=== PATIENT | male | born 1940 | race Caucasian/White ===

== ENCOUNTER 2018-02-25 09:47 | Outpatient (CLI) | payer MEDICARE ==
--- NOTE | 2018-02-25 11:41 | RAD ---
LUMBAR SPINE THREE VIEWS INCLUDING FLEXION AND EXTENSION STANDING LATERAL VIEWS: HISTORY: A 78-year-old male with a history of back pain. FINDINGS: Severe multilevel disk osteophytosis and facet arthrosis. Mild anterolisthesis of L4 on L5 and retro listhesis of L3 on L4, of L2 on L3, and of L1 on L2, but no evidence for abnormal translation between flexion and extension. IMPRESSION: 1. Severe spondylosis. 2. Mild anterolisthesis of L4 on L5 with retrolisthesis of L3 on L4, L2 on L3, and L1 on L2. 3. No abnormal translation between flexion and extension. POS: [facility]
== END 2018-02-25 09:48 | disposition home or self-care (01) ==
LOC: RAD 09:47
PROVIDERS: ATTEND Nurse Practitioner Family
DX: M47.16 Other spondylosis with myelopathy, lumbar region (principal); M43.16 Spondylolisthesis, lumbar region
CPT/HCPCS: 72100

== ENCOUNTER 2018-04-08 08:23 | Observation (INO) | payer MEDICARE ==
[2018-04-08] MEDS ORDERED: ADENOSINE 60 MG/20 ML VIAL ONE (09:00)
[2018-04-08 09:10] LABS: #Eosinphils 0.1 thou/uL (0.0-0.7); #Lymphocytes 1.5 thou/uL (1.20-3.40); #Monocytes 0.9 thou/uL (0.11-0.59); #Neutrophils 5.3 thou/uL (1.40-6.50); %Basophils 0.3 % (0.0-1.0); %Eosinophils 1.5 % (0.0-10.0); %Lymphocytes 18.6 % (21.0-51.0); %Neutrophils 68.5 % (42.0-75.0); Hemoglobin 15.2 g/dL (14.0-18.0); Mean Corpuscular HGB CONC 32.7 g/dL (32.0-36.0); Mean Corpuscular Hemoglobin 30.1 pg (27.0-31.0); Mean Platelet Volume 9.6 fL (7.4-10.4); Platelet Count 154 thou/uL (130-400); RBC Distribution Width 12.5 % (11.5-14.5); Red Blood Cell (RBC) Count 5.07 mill/uL (4.70-6.10); White Blood Cell (WBC) Count 7.8 thou/uL (4.8-10.8)
[2018-04-08 09:23] LABS: Bilirubin Negative (Negative); Blood, Urine Negative (Negative); Clarity CLOUDY (Clear); Glucose, Urine (Dipstick) Negative (Negative); Leukocyte Moderate (Negative); Nitrite Negative (Negative); Protein, Urine (Dipstick) Negative (Neg-Trace); Specific Gravity, Urine 1.018 (1.002-1.036); Urobilinogen 0.2 mg/dL (0.2-1.0)
[2018-04-08 09:26] LABS: Bacteria/HPF 1+ HPF (None Seen); Hyaline Casts/LPF 4-6 HYALINE CAST LPF (0-3 Hyaline); Pathc Cast-AUWi Flag 0.14 (0-2.49); RBC/HPF 0-3 HPF (0-3); Squamous Epithelial None Seen HPF (0-3)
[2018-04-08 09:27] LABS: Yeast-AUWi Flag 62.3 (0-25.0)
--- NOTE | 2018-04-08 09:34 | CT ---
CT HEAD WITHOUT CONTRAST: Technique: Multiple contiguous axial images were obtained through the head without IV enhancement. Indications: Metal status change, dizziness. Comparison: 01-26-16 FINDINGS: There is mild cortical volume loss, more prominent involving the frontal lobes with extraaxial CSF ov er the frontal convexities bilaterally, unchanged from the prior exam. Ventricles have normal size an d position. There are ischemic changes with focal areas of lucency in the deep white matter of both cerebral ronn spheres suggesting old lacunar infarcts. Evidence of lacunar infarct in the right basal ganglia which are more prominent today. No evidence of hemorrhage, mass, or acute cortical infarct. IMPRESSION: Cortical volume loss over the frontal lobes again noted and stable. Increasing chronic ischemic reyes es as described above when compared to prior exam. POS: [facility]
--- NOTE | 2018-04-08 09:40 | RAD ---
PORTABLE CHEST ONE VIEW: Date: 04-08-18 Time: 9:04 a.m. History: Altered mental status, hypertension, syncope. FINDINGS: Comparison is made with exam of 01-26-16. The heart size is normal. The aorta is tortuous. The lungs are well expanded without focal areas of c onsolidation, pneumothorax, or pleural effusions. IMPRESSION: No radiographic evidence of acute cardiopulmonary process. POS: [facility]
[2018-04-08 10:03] LABS: ALT (SGPT) 19 U/L (8-55); AST (SGOT) 40 U/L (5-34); Albumin 4.2 g/dL (3.4-4.8); Alkaline Phosphatase 73 U/L (40-150); Anion Gap 19 mmol/L (10-20); BUN (Urea Nitrogen) 16 mg/dL (8.4-25.7); Bilirubin, Total 0.7 mg/dL (0.2-1.2); CK (CPK) 61 U/L (30-200); Calc. Creatinine Clearance 0 mL/min (70-130); Calcium 9.4 mg/dL (7.8-10.44); Carbon Dioxide 23 mmol/L (23-31); Chloride 102 mmol/L (98-107); Estimated GFR-MDRD 53; Globulin 4.1 g/dL (2.4-3.5); Glucose 128 mg/dL (83-110); Potassium 5.8 mmol/L (3.5-5.1); Protein, Total 8.3 g/dL (5.8-8.1); Sodium 138 mmol/L (136-145)
[2018-04-08 10:33] LABS: Crystals/HPF 1+ AMORPH URATES HPF (Negative)
[2018-04-08] MEDS ORDERED: cefTRIAXone\\ROCEPHIN 2 GM VIAL ONE ×2 (10:40→10:41)
[2018-04-08] MEDS ORDERED: Acetaminophen 325 MG TAB PO PRN ×2 (12:39→12:44)
[2018-04-08] MEDS ORDERED: Ondansetron PF 4 MG/2 ML Vial IVP PRN (12:39)
[2018-04-08] MEDS ORDERED: Ondansetron ODT 4 MG TAB PO PRN (12:39)
[2018-04-08] MEDS ORDERED: Guaifenesin DM 100-10/5 ML UDCUP PO PRN (12:44)
[2018-04-08] MEDS ORDERED: traMADol HCl 50 MG TAB PO PRN (12:44)
[2018-04-08] MEDS ORDERED: HumaLOG 300 UNITS/3 ML VIAL SC PRN (12:44)
[2018-04-08] MEDS ORDERED: Dextrose 50% Abboject 50 ML SYRINGE SLOW IVP PRN (12:44)
[2018-04-08] MEDS ORDERED: Dextrose 5% in Water 1,000 ML IV PRN (12:44)
[2018-04-08] MEDS ORDERED: Sodium Chloride 0.9% 1,000 ML IV SCH (12:45)
[2018-04-08 12:56] VITALS: BMI 33.7
[2018-04-08 12:59] LABS: Troponin I Less than 0.010 ng/mL (< 0.028)
--- NOTE | 2018-04-08 13:56 | HP ---
REASON FOR ADMISSION: Syncope, dizziness. HISTORY OF PRESENTING ILLNESS: The patient gives history of having passed out multiple times in his workshop. He relates this has happened when he was upright mostly, and this has happened multiple times as well. He usually wakes up on the floor. Most of these episodes have happened in his workshop where he goes for 3 hours a day. The at bedside has not witnessed any episode. No complaints of chest pain, palpitation, PND, or orthopnea either before or after the episode. The patient has few seconds to know that he might have a syncopal episode and tries to find a safe place. No history of seizure-like activity. The patient says these come on very quick and he wakes up very quick as well from the floor. Usual loss of consciousness is around a minute or less. No history of postictal symptoms as such per patient's history. He has not had any stress test in the past. He has had stroke 2 years back when he had facial drooping which got completely resolved. PAST MEDICAL HISTORY/PAST SURGICAL HISTORY: Diabetes mellitus type 2, hypertension, benign prostatic hypertrophy, dyslipidemia, chronic dizziness which has been getting worse, history of CVA two years back, tonsillectomy, left shoulder surgery, prostate surgery, bilateral inguinal hernia repair. Chronic back pain and sees Dr. Griggs, in fact, he had an epidural shot given this morning. CURRENT MEDICATIONS: The patient takes aspirin 325 mg p.o. daily, glipizide 2.5 mg twice daily, lisinopril 20 mg daily, metformin 1000 mg p.o. twice daily, simvastatin 20 mg p.o. at bedtime, Ultram p.r.n., atenolol 50 mg p.o. daily. ALLERGIES: CODEINE. PERSONAL HISTORY: He quit smoking cigars 15 years ago, prior to which he has smoked for nearly 40 years. Does not abuse alcohol or drugs. Lives with his . FAMILY HISTORY: Mother at the age of 60 years. She has had history of cardiac disease and massive RI. Father of massive RI at the age of 53 years. Code status is full. Power of deputy prosecuting attorney is his . REVIEW OF SYSTEMS: CONSTITUTIONAL: Negative for weight loss or gain, ability to conduct usual activities. SKIN: Negative for rash, itching. EYES: Negative for double vision, pain. ENT/MOUTH: Negative for nose bleeding, neck stiffness, pain, tenderness. CARDIOVASCULAR: Negative for palpitations, dyspnea on exertion, orthopnea. RESPIRATORY: Negative for shortness of breath, wheezing, cough, hemoptysis, fever or night sweats. GASTROINTESTINAL: Negative for poor appetite, abdominal pain, heartburn, nausea , vomiting, constipation, or diarrhea. GENITOURINARY: Negative for urgency, frequency, dysuria, nocturia. MUSCULOSKELETAL: Negative for pain, swelling. NEUROLOGIC/PSYCHIATRIC: Negative for anxiety, depression. ALLERGY/IMMUNOLOGIC: Negative for skin rash, bleeding tendency. PHYSICAL EXAMINATION: GENERAL: The patient is a 78-year-old male, who is currently not in any acute distress. VITAL SIGNS: Blood pressure on arrival was 194/90, pulse 66 per minute, respiratory rate is 18 per minute, temperature 98.6 degrees Fahrenheit, saturating 96% on room air. NECK: Supple. No elevated JVD. EYES: Extraocular muscles intact. Pupils reacting to light. MOUTH: Oral cavity, mucous membranes are dry. No exudates or congestion. CARDIOVASCULAR: S1, S2 heard. Regular rhythm. RESPIRATORY: Air entry 1+ bilateral. No rales or rhonchi. ABDOMEN: Soft. Bowel sounds heard. No tenderness, rigidity, or guarding. EXTREMITIES: No peripheral edema or calf tenderness. VASCULAR: Peripheral pulses 1+ bilateral. No ischemic ulcerations or gangrene. CENTRAL NERVOUS SYSTEM: No gross focal deficits noted. The patient is alert, awake, and oriented well. PSYCHIATRIC: The patient's mood is euthymic. No hallucinations or delusions. DIAGNOSTIC DATA/LABORATORY DATA: Chest x-ray done shows no acute cardiopulmonary abnormality. CT of brain done shows cortical volume loss over both frontal lobes, which is again stable when compared to prior CAT scan done in January of 2016. There are chronic ischemic changes seen. UA shows moderate leukocyte esterase with 7 to 10 wbc's and 1+ bacteria. Troponin x2 is negative. Albumin 4.2, TSH 1.58, BUN 16, creatinine 1.3, serum glucose 128, AST 40, ALT 19, total bilirubin 0.7, potassium 5.8, serum bicarb 23. White count of 7, H and H 15 and 46, platelet count 154, MCV is 92 with 68% neutrophils. EKG done shows normal sinus rhythm at 66 beats per minute. There are nonspecific ST-T wave changes. CLINICAL IMPRESSION AND PLAN: The patient will be under observation on telemetry for multiple syncopal episodes, which occur suddenly with wakes up with complete consciousness within a minute or so. These have happened multiple times and mostly when he is upright. He also currently has a urinary tract infection and likely mild dehydration as well. We will obtain orthostatic blood pressures. He will be on normal saline at 60 mL per hour. The patient's both parents less than 60 years with massive MIs, and the patient has never had a stress test in his life. We will obtain the same now, and a repeat echo for valvular structures. Will be on aspirin, small dose of lisinopril, home dose of atenolol, Zocor as before. We will hold metformin for now and continue glipizide here. He will be on Levaquin for suspected urinary tract infection. Urine cultures will be obtained as well. The patient' s syncopal pattern appears to be cardiac and will get cardiology consultation with Dr. Salas, who is on-call. Job ID: [id number] MTDD
--- NOTE | 2018-04-08 17:22 | NM ---
MYOCARDIAL PERFUSION EVALUATION: INDICATIONS: History of CVA, hypertension, diabetes, and dyslipidemia. RADIOPHARMACEUTICAL: Technetium 99m sestamibi 28.8 millicuries IV with stress. Technetium 99m sestamibi 11 millicuries with rest. FINDINGS: When comparing the rest and stress images, no reversible myocardial perfusion defect is evident. The re is normal wall motion and thickening. Estimated LVEF is 60%. IMPRESSION: Normal myocardial perfusion evaluation. POS: [facility]
[2018-04-08 17:38] LABS: Troponin I Less than 0.010 ng/mL (< 0.028)
[2018-04-08] MEDS: HumaLOG 300 UNITS/3 ML VIAL SC PRN (17:56)
[2018-04-08] MEDS: Sodium Chloride 0.9% 1,000 ML IV SCH (17:58)
[2018-04-08] MEDS: Famotidine 20 MG TAB PO SCH (20:08)
[2018-04-08] MEDS: Metoprolol Tartrate 25 MG TAB PO SCH (21:03)
--- NOTE | 2018-04-09 02:20 | CON ---
DATE OF CONSULTATION: 04/08/2018 CARDIOLOGY CONSULT NOTE INDICATION FOR CONSULTATION: A 78-year-old gentleman with multiple syncopal episodes. HISTORY OF PRESENT ILLNESS: This very pleasant 78-year-old gentleman says he suffered a stroke about a year ago and since that time, he has been having some problems with passing out. He says they usually happen very abruptly and always when he is standing or he is upright. He says he only has a few seconds sometimes before he tries to catch himself, but he does notice they are coming on, but before he can do anything about it, he has already passed out and they do not last long and then he recovers. He denies any seizure activity. He did have orthostatic blood pressure checks done today, which showed a supine blood pressure of 180/87, standing blood pressure was 127/60, and sitting was 119/57 and obviously, the patient has orthostatic hypotension. This is approximately 60 mmHg drop in the blood pressure. He denies any problem or cardiac history. He had no chest pain or shortness of breath. He had no lower extremity edema. He has had no palpitations. He has had no significant family history of heart disease. PAST MEDICAL HISTORY: Significant for possible CVA about 2 years ago. He has history of diabetes, hypertension, benign prostatic hypertrophy. He has history of dyslipidemia, history of left shoulder surgery, prostate surgery, bilateral inguinal hernia repairs. He has had tonsillectomy. He has chronic back pain. PRESENT MEDICATIONS: Prior to admission include; 1. Aspirin. 2. Glipizide. 3. Lisinopril. 4. Metformin. 5. Simvastatin. 6. Ultram. 7. Atenolol. ALLERGIES: HE IS ALLERGIC TO CODEINE. SOCIAL HISTORY: He smoked many, many years ago when he was younger, but only smoked cigars. He has had no significant tobacco abuse. Otherwise, he has no history of illicit drug use or alcohol. He still lives with his family or with his . FAMILY HISTORY: His mother had a massive MD. Both of his parents had MIs and in their 50s or 60s. REVIEW OF SYSTEMS: A 12-point review of systems is relatively unremarkable except what is noted in the history of present illness. Otherwise, he denies any HEENT complaints, any chest complaints. He does have some visual problems, what he said he has a bleeding, most likely due to his diabetes or hypertension. He has had no complaints from a GI or standpoint. Otherwise, he has had no lower extremity edema and no history of seizures. PHYSICAL EXAMINATION: GENERAL: Reveals a very pleasant, well-developed, well-nourished gentleman, who is in no acute distress. He is alert and oriented x3. VITAL SIGNS: At this time, his blood pressure is 127/60 while he is standing and lying down is 180/87. His most recent blood pressure was 171/83. HEENT: Shows head to be normocephalic and atraumatic. Carotid pulses are present. I do not hear any bruits. There is no JVD. The thyroid does not appear to be enlarged. Oral mucosa is pink and moist. CHEST: Clear to auscultation without rales, rhonchi, or wheezing. CARDIOVASCULAR: Reveals a regular rate and rhythm. Normal S1, S2. There is no S3 or S4. There were no significant murmurs, heaves, thrills, bruits or rubs. ABDOMEN: Abdominal exam shows obesity with positive bowel sounds. No organomegaly or masses noted. Femoral pulses are present. EXTREMITIES: No clubbing, cyanosis, or edema. Pedal pulses are present. NEUROLOGICAL: The patient appears to be intact at this time. He has normal strength. Normal tone. SKIN: Warm and dry. LABORATORY DATA: EKG shows a normal sinus rhythm with no acute changes. He has had a CT scan performed earlier today. This showed some cortical loss of the frontal lobes, which has not been new and he also has some chronic ischemic changes, but otherwise there were no acute findings noted. There is no indication the patient had any cardiac elevation of the enzymes. These are all normal. He actually had a stress test performed, which also showed no evidence of ischemia. An echo was ordered, has not yet been evaluated and I will look at this later today. IMPRESSION: 1. Elderly gentleman with orthostatic hypotension. This is an autonomic nervous system issue, more neurologic than cardiac. Appears to be issue mainly associated with his blood pressure. We can always try midodrine in this gentleman or we can first of all try support hose and then he may need other medications in the form of beta blockers for his blood pressure to see if this will help some with his orthostatic hypotension. From a cardiac standpoint thus far, he appears to be normal, but we will continue to monitor him and see whether or not he has any arrhythmias, but it does appear that this is an orthostatic hypotension in this gentleman. We will see how he does while in the hospital, but could start him on 10 mg three times a day with midodrine to see if this will improve some of his symptoms. He may need further blood pressure medications in order to help with his hypertension. As far as his other medical problems, for this diabetes, this will be dealt by the primary care service. 2. Hypertension. He definitely will need some changes in his medications in order to control his blood pressure. 3. History of chronic pain. I believe he is followed by Dr. Griggs and he has received occasional epidural shots and apparently, he did have one earlier today. 4. Further recommendations will depend on the results of the echocardiogram, but at this time, from a cardiac standpoint, it appears his overall cardiac status is stable, but this is a neurologic problem with orthostatic hypotension. Job ID: [id number]
[2018-04-09 05:01] LABS: #Eosinphils 0.1 thou/uL (0.0-0.7); #Lymphocytes 1.1 thou/uL (1.20-3.40); #Monocytes 0.6 thou/uL (0.11-0.59); #Neutrophils 4.6 thou/uL (1.40-6.50); %Basophils 0.5 % (0.0-1.0); %Eosinophils 1.2 % (0.0-10.0); %Lymphocytes 16.9 % (21.0-51.0); %Monocytes 9.6 % (0.0-10.0); %Neutrophils 71.8 % (42.0-75.0); Hemoglobin 13.6 g/dL (14.0-18.0); Mean Corpuscular Hemoglobin 31.5 pg (27.0-31.0); Mean Corpuscular Volume 92.8 fL (78.0-98.0); Mean Platelet Volume 9.1 fL (7.4-10.4); Platelet Count 129 thou/uL (130-400); RBC Distribution Width 12.2 % (11.5-14.5); Red Blood Cell (RBC) Count 4.31 mill/uL (4.70-6.10); White Blood Cell (WBC) Count 6.4 thou/uL (4.8-10.8)
[2018-04-09] MEDS: Sodium Chloride 0.9% 1,000 ML IV SCH ×2 (05:20→05:27)
[2018-04-09 05:23] LABS: Anion Gap 13 mmol/L (10-20); BUN (Urea Nitrogen) 18 mg/dL (8.4-25.7); Calc. Creatinine Clearance 68 mL/min (70-130); Calcium 8.8 mg/dL (7.8-10.44); Carbon Dioxide 26 mmol/L (23-31); Cardiac Risk 3.4 (Less than 4.5); Chloride 101 mmol/L (98-107); Cholesterol 111 mg/dl (< 200 Desired); Estimated GFR-MDRD 60; Glucose 133 mg/dL (83-110); HDL Cholesterol 33 mg/dL (>60 Neg Risk); LDL Cholesterol, Calculated 59 mg/dL; Potassium 4.4 mmol/L (3.5-5.1); Sodium 136 mmol/L (136-145); Triglycerides 94 mg/dL (Less than 150)
[2018-04-09] MEDS ORDERED: Atenolol 50 MG TAB PO SCH (09:00)
[2018-04-09] MEDS ORDERED: Lisinopril 5 MG TAB PO SCH ×2 (09:00→15:02)
--- NOTE | 2018-04-09 09:16 | PDOC.CTH ---
Cardiology Progress Note - Subjective The pt seen and examined. No overnight events. No cardiac complaints. - Objective Vital Signs Temp Pulse Resp BP BP Pulse Ox 04/09/18 07:11 97.9 F 62 16 175/93 H 96 04/09/18 04:00 98.2 F 64 14 163/87 H 97 04/09/18 00:10 98.2 F 67 16 144/74 H 94 L Weight 207 lb 1.6 oz 04/08/18 04/09/18 04/10/18 06:59 06:59 06:59 Intake Total 2564 240 Output Total 1100 Balance 1464 240 - Physical Examination General/Neuro: alert & oriented x3 Neck: no JVD present Lungs: CTA Heart: RRR Abdomen: soft Extremities: other: (No edema) - Telemetry Telemetry Rhythm: SR - Labs Result Diagrams: 04/09/18 04:34 04/09/18 04:34 Troponin/CKMB Troponin I Less than 0.010 ng/mL (< 0.028) 04/08/18 16:52 - Assessment/Plan 1. Syncopal episodes possible 2/2 Orthostatic Hypotension - no more syncopal/ near syncopal episodes; Stress test was normal; Start Midodrine 10mg TID; Possible the pt needs Waist high BENITEZ; 2. Hx of CVA in 11/2016 3. Vertigo - stable 4. HTN - stable 5. UTI - On NS 60ml/h and ABX IV; managed by PCP Pt. seen and eval. by me. No new complaints. No syncope. BP is elevated in supine position. May need to try NTG paste while he is lying down . Try Midodrine. Stop betablockers for now. May need Neurology input as this is a neurologic problem. I agree otherwise with the A/P by the LEISURE STUDIES PROFESSOR. Review of Systems - Review of Systems Constitutional: reports: no symptoms reported EENTM: reports: no symptoms reported Respiratory: reports: no symptoms reported Cardiac (ROS): reports: no symptoms reported ABD/GI: reports: no symptoms reported : reports: no symptoms reported Musculoskeletal: reports: no symptoms reported
[2018-04-09] MEDS: Famotidine 20 MG TAB PO SCH ×2 (09:20→21:06)
[2018-04-09] MEDS: Aspirin 81 mg Enteric Coated Tablet PO SCH ×2 (09:20→21:06)
[2018-04-09] MEDS: Enoxaparin Sodium 40 MG/0.4 ML SYRINGE SC SCH (09:21)
[2018-04-09] MEDS: Metoprolol Tartrate 25 MG TAB PO SCH (09:28)
[2018-04-09] MEDS ORDERED: Midodrine HCl 5 MG TAB PO SCH (10:15)
[2018-04-09] MEDS: HumaLOG 300 UNITS/3 ML VIAL SC PRN (11:04)
--- NOTE | 2018-04-09 12:28 | EKG ---
Test Reason : Blood Pressure : / mmHG Vent. Rate : 066 BPM Atrial Rate : 066 BPM P-R Int : 116 ms QRS Dur : 078 ms QT Int : 420 ms P-R-T Axes : 046 046 109 degrees QTc Int : 440 ms Normal sinus rhythm Possible Left atrial enlargement Nonspecific T wave abnormality Abnormal ECG Confirmed by EDIE TADEO, SHEELA ([id number]), editor producer JERAMY MORTENSEN ([id number]) on 04/09/2018 12:28:37 PM Referred By: Confirmed By:SHEELA IRIZARRY MD
[2018-04-09] MEDS ORDERED: hydrALAZINE 25 MG TAB PO SCH (16:00)
[2018-04-09] MEDS ORDERED: Lisinopril 10 MG TAB PO SCH (16:00)
[2018-04-09] MEDS: Midodrine HCl 5 MG TAB PO SCH ×2 (16:03→22:59)
[2018-04-09] MEDS: Nitroglycerin 2% Ointment 1 INCH/1 GM Packet TOP SCH (19:44)
[2018-04-09] MEDS: hydrALAZINE 25 MG TAB PO SCH (21:06)
[2018-04-09] MEDS ORDERED: traZODone HCl 50 MG TAB PO PRN (22:25)
--- NOTE | 2018-04-10 05:42 | PDOC.PN ---
- Subjective Encounter Start Date: 04/09/18 Encounter Start Time: 09:00 Subjective: pt up in bed no compalins, wants to go home - Objective Resuscitation Status - Order Detail: 04/08/18 12:31 Resuscitation Status Routine Resuscitation Status: FULL: Full Resuscitation Vital Signs & Weight: Vital Signs (12 hours) Temp Pulse Resp BP BP Pulse Ox 04/10/18 03:07 97.9 F 82 18 161/72 H 96 04/09/18 23:00 98.3 F 83 20 143/65 H 95 04/09/18 19:25 98.4 F 83 16 197/93 H 97 Weight Weight 207 lb 1.6 oz I&O: 04/08/18 04/09/18 04/10/18 06:59 06:59 06:59 Intake Total 2564 2254 Output Total 1100 1125 Balance 1464 1129 Result Diagrams: 04/09/18 04:34 04/09/18 04:34 Additional Labs: Accuchecks 04/10/18 04/09/18 04/09/18 05:05 21:38 16:41 POC Glucose 146 H 178 H 126 H 04/09/18 04/09/18 10:21 05:53 POC Glucose 232 H 124 H Phys Exam - Physical Examination Neck: no nodes, no JVD, supple, full ROM Respiratory: no wheezing, no rales, no rhonchi, wheezing present, clear to auscultation bilateral Cardiovascular: RRR, no significant murmur, no rub, gallop, irregular Gastrointestinal: soft, non-tender, no distention, positive bowel sounds Musculoskeletal: no edema, pulses present, edema present Dx/Plan (1) Syncope Code(s): R55 - SYNCOPE AND COLLAPSE Status: Acute (2) LEANNE (acute kidney injury) Code(s): N17.9 - ACUTE KIDNEY FAILURE, UNSPECIFIED Status: Acute (3) BPH (benign prostatic hypertrophy) with urinary obstruction Code(s): N40.1 - BENIGN PROSTATIC HYPERPLASIA WITH LOWER URINARY TRACT SYMP; N13.8 - OTHER OBSTRUCTIVE AND REFLUX UROPATHY Status: Acute (4) Hypertension Code(s): I10 - ESSENTIAL (PRIMARY) HYPERTENSION Status: Chronic - Plan pt has been having episodes of syncope at home. stress test negative -: echo pending. pt still has positive orthostatics -: will change his bb to pm, cardio is adding midodrine -: pt's bp is still very high on sitting. will continue home meds. * . Review of Systems - Review of Systems Respiratory: negative: Cough, Dry, Shortness of Breath, Hemoptysis, SOB with Excertion, Pleuritic Pain, Sputum, Wheezing Cardiovascular: negative: chest pain, palpitations, orthopnea, paroxysmal nocturnal dyspnea, edema, light headedness, other Gastrointestinal: negative: Nausea, Vomiting, Abdominal Pain, Diarrhea, Constipation, Melena, Hematochezia, Other Genitourinary: negative: Dysuria, Frequency, Incontinence, Hematuria, Retention , Other - Medications/Allergies Allergies/Adverse Reactions: Allergies Allergy/AdvReac Type Severity Reaction Status Date / Time codeine Allergy "feels out Verified 12/22/15 10:36 of control; anxious Medications: Current Medications Acetaminophen (Tylenol) 650 mg PO Q4H PRN PRN Reason: Headache/Fever/Mild Pain (1-3) Aspirin (Ecotrin) 81 mg PO DAILY [facility] Last Admin: 04/09/18 09:20 Dose: 81 mg Aspirin (Ecotrin) 81 mg PO HS [facility] Last Admin: 04/09/18 21:06 Dose: 81 mg Dextrose/Water (Dextrose 50%) 25 gm SLOW IVP PRN PRN PRN Reason: Hypoglycemia Enoxaparin Sodium (Lovenox) 40 mg SC 0900 [facility] Last Admin: 04/09/18 09:21 Dose: 40 mg Famotidine (Pepcid) 20 mg PO BID [facility] Last Admin: 04/09/18 21:06 Dose: 20 mg Glucagon (Glucagon) 1 mg IM PRN PRN PRN Reason: Hypoglycemia Guaifenesin/Dextromethorphan (Robitussin Dm) 15 ml PO Q4H PRN PRN Reason: Cough Hydralazine HCl (Apresoline) 50 mg PO BID [facility] Last Admin: 04/09/18 21:06 Dose: 50 mg Dextrose/Water (D5w) 1,000 mls @ 0 mls/hr IV .Q0M PRN PRN Reason: Hypoglycemia Insulin Human Lispro (Humalog) 0 units SC .MODERATE SLIDING SC PRN PRN Reason: Moderate Correctional Scale Last Admin: 04/09/18 11:04 Dose: 4 unit Insulin Human Lispro (Humalog) 0 units SC .BEDTIME SLIDING SC PRN PRN Reason: Bedtime Correctional Scale Levofloxacin (Levaquin) 500 mg PO 1999 [facility] Last Admin: 04/09/18 19:43 Dose: 500 mg Lisinopril (Zestril) 10 mg PO QAM [facility] Midodrine (Proamatine) 10 mg PO TID [facility] Last Admin: 04/09/18 22:59 Dose: 10 mg Nitroglycerin (Nitro-Bid 2% Ointment) 1 inch TOP QPM [facility] Last Admin: 04/09/18 19:44 Dose: 1 inch Pantoprazole Sodium (Protonix) 40 mg PO DAILY [facility] Last Admin: 04/09/18 09:22 Dose: 40 mg Sertraline HCl (Zoloft) 50 mg PO DAILY [facility] Tramadol HCl (Ultram) 50 mg PO QID PRN PRN Reason: Pain 4-6 Trazodone HCl (Desyrel) 50 mg PO HSPRN PRN PRN Reason: Insomnia Last Admin: 04/09/18 23:00 Dose: 50 mg
--- NOTE | 2018-04-10 08:38 | PDOC.CTH ---
Cardiology Progress Note - Subjective the pt seen and examined. No overnight events. No cardiac complaints. N&V x2 this AM. - Objective Vital Signs Temp Pulse Resp BP BP BP BP 04/10/18 07:17 98.2 F 83 16 152/67 H 150/53 H 179/84 H 04/10/18 03:07 97.9 F 82 18 161/72 H 04/09/18 23:00 98.3 F 83 20 143/65 H Pulse Ox 04/10/18 07:17 95 04/10/18 03:07 96 04/09/18 23:00 95 Weight 207 lb 1.6 oz 04/09/18 04/10/18 04/11/18 06:59 06:59 06:59 Intake Total 2564 2254 Output Total 1100 1125 Balance 1464 1129 - Physical Examination General/Neuro: alert & oriented x3 Neck: no JVD present Lungs: CTA (diminished at bases) Heart: RRR Abdomen: soft Extremities: other: (No edema) - Telemetry Telemetry Rhythm: SR - Labs Result Diagrams: 04/09/18 04:34 04/09/18 04:34 Troponin/CKMB Troponin I Less than 0.010 ng/mL (< 0.028) 04/08/18 16:52 - Assessment/Plan 1. Syncopal episodes possible 2/2 Orthostatic Hypotension - no more syncopal/ near syncopal episodes; Stress test was normal; Echo showed normal with EF 60-65 %. Decrease Midodrine from 10mg to 5mg TID; Possible the pt needs Waist high BENITEZ; 2. Hx of CVA in 11/2016 3. Vertigo - stable 4. HTN - Lisinopril 10mg was added from yesterday. NTG paste qPM for BP with spine position. 5. UTI - managed by PCP * Recommend Neurology input as this is a neurologic problem. Pt. seen and eval. by me. I agree with the A/P by the STRAIGHTENER AND ALIGNER.We have discussed the plan. This PM he is feeling better. Earlier he had dizziness and nausea. The BP was elevated but is much better now. Review of Systems - Review of Systems Constitutional: reports: no symptoms reported EENTM: reports: no symptoms reported Respiratory: reports: no symptoms reported Cardiac (ROS): reports: no symptoms reported ABD/GI: reports: see HPI : reports: no symptoms reported Musculoskeletal: reports: no symptoms reported
[2018-04-10] MEDS: Aspirin 81 mg Enteric Coated Tablet PO SCH ×2 (08:39→21:03)
[2018-04-10] MEDS: Enoxaparin Sodium 40 MG/0.4 ML SYRINGE SC SCH (08:40)
[2018-04-10] MEDS: Lisinopril 10 MG TAB PO SCH (08:40)
[2018-04-10] MEDS: Midodrine HCl 5 MG TAB PO SCH ×3 (08:40→21:03)
[2018-04-10] MEDS: Famotidine 20 MG TAB PO SCH ×2 (08:40→21:03)
[2018-04-10] MEDS: hydrALAZINE 25 MG TAB PO SCH ×2 (08:40→21:03)
[2018-04-10] MEDS: Meclizine HCl 25 MG TAB PO SCH ×2 (10:46→18:04)
[2018-04-10] MEDS: Ondansetron PF 4 MG/2 ML Vial IVP PRN ×2 (11:43→18:04)
[2018-04-10] MEDS ORDERED: Meclizine HCl 25 MG TAB PO SCH (14:00)
--- NOTE | 2018-04-10 14:37 | ULT ---
ULTRASOUND DOPPLER DUPLEX CAROTID: 04/10/2018 HISTORY: A 78-year-old male with dizziness. TECHNIQUE: Olguin-scale, color-flow, and spectral analysis of the major arteries of the neck. FINDINGS: There is a small, mild focal plaque at the proximal right internal carotid artery, near its origin. There is moderate atheromatous plaque at the origin of the left internal carotid artery, at the carot id bulb. Vertebral artery flow is antegrade bilaterally. The highest peak systolic velocities in the internal carotid arteries are 60 cm/s on the right and 75 cm/s on the left. IMPRESSION: 1. Moderate atheromatous plaque at the proximal left internal carotid artery, at the carotid bulb. 2. No evidence of hemodynamically significant carotid stenosis. POS: [facility]
[2018-04-10] MEDS: HumaLOG 300 UNITS/3 ML VIAL SC PRN (17:02)
--- NOTE | 2018-04-10 17:55 | PDOC.PN ---
- Subjective Encounter Start Date: 04/10/18 Encounter Start Time: 10:30 Subjective: pt up in bed still very dizzy on movement - Objective Resuscitation Status - Order Detail: 04/08/18 12:31 Resuscitation Status Routine Resuscitation Status: FULL: Full Resuscitation Vital Signs & Weight: Vital Signs (12 hours) Temp Pulse Resp BP BP BP BP 04/10/18 15:35 97.7 F 98 18 142/85 H 04/10/18 11:36 97.7 F 89 20 190/95 H 184/74 H 04/10/18 08:40 83 179/84 H 04/10/18 07:17 98.2 F 83 16 152/67 H 150/53 H BP Pulse Ox 04/10/18 15:35 97 04/10/18 11:36 198/86 H 98 04/10/18 08:40 04/10/18 07:17 179/84 H 95 Weight Weight 207 lb 1.6 oz I&O: 04/09/18 04/10/18 04/11/18 06:59 06:59 06:59 Intake Total 2564 2254 125 Output Total 1100 1125 650 Balance 1464 1129 -525 Result Diagrams: 04/09/18 04:34 04/09/18 04:34 Additional Labs: Accuchecks 04/10/18 04/10/18 04/10/18 16:39 11:37 05:05 POC Glucose 233 H 170 H 146 H 04/09/18 21:38 POC Glucose 178 H Phys Exam - Physical Examination pt gets dizzy on movement Neck: no nodes, no JVD, supple, full ROM Respiratory: no wheezing, no rales, no rhonchi, wheezing present, clear to auscultation bilateral Cardiovascular: RRR, no significant murmur, no rub, gallop, irregular Gastrointestinal: soft, non-tender, no distention, positive bowel sounds Dx/Plan (1) Syncope Code(s): R55 - SYNCOPE AND COLLAPSE Status: Acute (2) LEANNE (acute kidney injury) Code(s): N17.9 - ACUTE KIDNEY FAILURE, UNSPECIFIED Status: Acute (3) BPH (benign prostatic hypertrophy) with urinary obstruction Code(s): N40.1 - BENIGN PROSTATIC HYPERPLASIA WITH LOWER URINARY TRACT SYMP; N13.8 - OTHER OBSTRUCTIVE AND REFLUX UROPATHY Status: Acute (4) Hypertension Code(s): I10 - ESSENTIAL (PRIMARY) HYPERTENSION Status: Chronic - Plan will add meclizne to see if this helps him -: will order carotid doppler -: pt has seen neurology for dizziness -: will get PT to evaluate him for dizziness clinic * . Review of Systems - Review of Systems Respiratory: negative: Cough, Dry, Shortness of Breath, Hemoptysis, SOB with Excertion, Pleuritic Pain, Sputum, Wheezing Cardiovascular: negative: chest pain, palpitations, orthopnea, paroxysmal nocturnal dyspnea, edema, light headedness, other Genitourinary: negative: Dysuria, Frequency, Incontinence, Hematuria, Retention , Other - Medications/Allergies Allergies/Adverse Reactions: Allergies Allergy/AdvReac Type Severity Reaction Status Date / Time codeine Allergy "feels out Verified 12/22/15 10:36 of control; anxious Medications: Current Medications Acetaminophen (Tylenol) 650 mg PO Q4H PRN PRN Reason: Headache/Fever/Mild Pain (1-3) Last Admin: 04/10/18 14:23 Dose: 650 mg Aspirin (Ecotrin) 81 mg PO DAILY [facility] Last Admin: 04/10/18 08:39 Dose: 81 mg Aspirin (Ecotrin) 81 mg PO HS [facility] Last Admin: 04/09/18 21:06 Dose: 81 mg Dextrose/Water (Dextrose 50%) 25 gm SLOW IVP PRN PRN PRN Reason: Hypoglycemia Enoxaparin Sodium (Lovenox) 40 mg SC 0900 [facility] Last Admin: 04/10/18 08:40 Dose: 40 mg Famotidine (Pepcid) 20 mg PO BID [facility] Last Admin: 04/10/18 08:40 Dose: 20 mg Glucagon (Glucagon) 1 mg IM PRN PRN PRN Reason: Hypoglycemia Guaifenesin/Dextromethorphan (Robitussin Dm) 15 ml PO Q4H PRN PRN Reason: Cough Hydralazine HCl (Apresoline) 50 mg PO BID [facility] Last Admin: 04/10/18 08:40 Dose: 50 mg Dextrose/Water (D5w) 1,000 mls @ 0 mls/hr IV .Q0M PRN PRN Reason: Hypoglycemia Insulin Human Lispro (Humalog) 0 units SC .MODERATE SLIDING SC PRN PRN Reason: Moderate Correctional Scale Last Admin: 04/10/18 17:02 Dose: 4 unit Insulin Human Lispro (Humalog) 0 units SC .BEDTIME SLIDING SC PRN PRN Reason: Bedtime Correctional Scale Levofloxacin (Levaquin) 500 mg PO 1999 [facility] Last Admin: 04/09/18 19:43 Dose: 500 mg Lisinopril (Zestril) 10 mg PO QAM [facility] Last Admin: 04/10/18 08:40 Dose: 10 mg Meclizine HCl (Antivert) 12.5 mg PO 0230,1030,1830 [facility] Last Admin: 04/10/18 10:46 Dose: 12.5 mg Midodrine (Proamatine) 5 mg PO TID [facility] Last Admin: 04/10/18 14:24 Dose: 5 mg Nitroglycerin (Nitro-Bid 2% Ointment) 1 inch TOP QPM [facility] Last Admin: 04/09/18 19:44 Dose: 1 inch Ondansetron HCl (Zofran) 4 mg IVP Q6H PRN PRN Reason: Nausea/Vomiting Last Admin: 04/10/18 11:43 Dose: 4 mg Pantoprazole Sodium (Protonix) 40 mg PO DAILY [facility] Last Admin: 04/10/18 08:41 Dose: 40 mg Sertraline HCl (Zoloft) 50 mg PO DAILY [facility] Last Admin: 04/10/18 08:41 Dose: 50 mg Tramadol HCl (Ultram) 50 mg PO QID PRN PRN Reason: Pain 4-6 Trazodone HCl (Desyrel) 50 mg PO HSPRN PRN PRN Reason: Insomnia Last Admin: 04/09/18 23:00 Dose: 50 mg
[2018-04-10] MEDS: Nitroglycerin 2% Ointment 1 INCH/1 GM Packet TOP SCH (20:05)
[2018-04-10] MEDS ORDERED: Atenolol 50 MG TAB PO SCH (21:00)
[2018-04-11] MEDS: Meclizine HCl 25 MG TAB PO SCH ×2 (03:07→11:05)
[2018-04-11] MEDS: hydrALAZINE 25 MG TAB PO SCH (08:26)
[2018-04-11] MEDS: Lisinopril 10 MG TAB PO SCH (08:27)
[2018-04-11] MEDS: Aspirin 81 mg Enteric Coated Tablet PO SCH (08:27)
[2018-04-11] MEDS: Midodrine HCl 5 MG TAB PO SCH (08:28)
[2018-04-11] MEDS: Famotidine 20 MG TAB PO SCH (08:28)
[2018-04-11] MEDS: Enoxaparin Sodium 40 MG/0.4 ML SYRINGE SC SCH (08:29)
[2018-04-11 11:50] VITALS: BP 161/74; TEMP 98.3
--- NOTE | 2018-04-11 12:38 | PDOC.CTH ---
Cardiology Progress Note - Subjective The pt seen and examined. No overnight events. No cardiac complaints. No more N&V. - Objective Vital Signs Temp Pulse Pulse Resp BP BP BP 04/11/18 11:00 98.3 F 95 20 04/11/18 09:05 94 158/83 H 148/57 H 04/11/18 07:32 98.2 F 94 16 04/11/18 03:07 98.4 F 94 16 142/65 H BP BP BP Pulse Ox 04/11/18 11:00 161/74 H 96 04/11/18 09:05 04/11/18 07:32 151/53 H 146/63 H 172/84 H 95 04/11/18 03:07 95 Weight 204 lb 6.4 oz 04/10/18 04/11/18 04/12/18 06:59 06:59 06:59 Intake Total 2254 1285 Output Total 1125 1225 Balance 1129 60 - Physical Examination General/Neuro: alert & oriented x3 Neck: no JVD present Lungs: CTA Heart: RRR Abdomen: soft Extremities: other: (No edema) - Telemetry Telemetry Rhythm: SR - Labs Result Diagrams: 04/09/18 04:34 04/09/18 04:34 Troponin/CKMB Troponin I Less than 0.010 ng/mL (< 0.028) 04/08/18 16:52 - Assessment/Plan 1. Syncopal episodes possible 2/2 Orthostatic Hypotension - no more syncopal/ near syncopal episodes; Stress test was normal; Echo showed normal with EF 60-65 %.On Midodrine 5mg TID; Possible the pt needs Waist high BENITEZ; 2. Hx of CVA in 11/2016 3. Vertigo - stable; The pt will f/u with dizziness clinic. 4. HTN - Lisinopril will be increased from 10mg to 20mg BID to manage his BP at HS. 5. UTI - managed by PCP * From Cardiac standpoint, the pt can be d/gary to home if his BP is stable this afternoon. The pt can follow up with his PCP or neurologist for his orthostatic hypotension. Pt. seen and eval. by me. I agree with the A/P by the GL[employer]. Chest clear. RRR. BP still increased in the supine position but improving. Stable for d/c. Review of Systems - Review of Systems Constitutional: reports: no symptoms reported EENTM: reports: no symptoms reported Respiratory: reports: no symptoms reported Cardiac (ROS): reports: no symptoms reported ABD/GI: reports: no symptoms reported : reports: no symptoms reported
[2018-04-11] MEDS ORDERED: Lisinopril 10 MG TAB PO SCH (12:45)
[2018-04-11] MEDS ORDERED: Lisinopril 20 MG TAB PO SCH (21:00)
--- NOTE | 2018-04-12 05:21 | DIS ---
DATE OF ADMISSION: 04/08/2018 DATE OF DISCHARGE: 04/11/2018 DISCHARGE DIAGNOSES: As of the followin. Syncope. 2. Acute kidney injury. 3. BPH. 4. Hypertension. HOSPITAL COURSE: The patient is a very pleasant 78-year-old male, who presented to the hospital with syncope and dizziness. Per H and P, the patient has been passing out multiple times in his workshop. The patient does have a past medical history of diabetes, hypertension, and also has had a stroke 2 years back, which has caused him to have severe dizziness. The patient was admitted to the hospital and was found to be orthostatic; they were normal blood pressures, but they were significantly orthostatic in nature. The patient underwent a stress test, which was negative. He also had a CT of brain done, which was essentially normal also. He just had some cortical volume loss over the frontal lobes, but otherwise it was pretty normal. The patient also had an echocardiogram, which indicated an EF of 60% to 65% with a mild annular calcification, mild aortic regurgitation, and trace tricuspid regurgitation. The patient also had a carotid Doppler done, which indicated moderate atheromatous plaque in the proximal left internal carotid artery at the carotid bulb. No evidence of hemodynamically significant carotid stenosis. The patient at this time also was seen by Cardiology; initially, due to his orthostatics being positive, he was put on midodrine. However, the patient in his resting time would have significant elevated blood pressures in the 170 systolic or 180 systolic. At this time, the patient's metoprolol was discontinued and his MARIANELA was titrated up, and he was put on midodrine. This worked for him really well, also we had added meclizine for this patient, which also seemed to help him more. The patient and the patient's stated that they had seen , Neurology for the same issue in the past and was told that given his stroke, he will have chronic dizziness. Also, the patient has done physical therapy as an outpatient for the same problem. I did recommend inpatient rehab for his dizziness; however, the patient refused. The patient was started on meclizine yesterday for the whole day and he did well, and the patient's dizziness has resolved. Currently, he is going to be on the following medications at home: 1. Aspirin 81 mg daily. 2. Sertraline 50 mg daily. 3. Hydralazine 50 mg b.i.d. 4. Tramadol 50 mg q.i.d. p.r.n. 5. Metformin 500 mg b.i.d. 6. Omeprazole 40 mg daily. 7. Glipizide 5 mg b.i.d. 8. Midodrine 5 mg t.i.d. 9. Lisinopril 20 mg b.i.d. 10. Meclizine 12.5 mg three times a day p.r.n. PHYSICAL EXAMINATION: VITAL SIGNS: As of the following; temperature of 98.3, pulse 95, respirations 20, and oxygen saturation 96% on room air. His blood pressure was 161/74. GENERAL: He is awake, alert, and oriented x3. He walks with physical therapy. No more dizziness. CV: S1 and S2 present. No murmurs, rubs, or gallops. ABDOMEN: Soft and nontender. Bowel sounds are present x2. EXTREMITIES: No edema. Again, he will be discharged home. He will follow up with his primary care doctor. I have asked him to use meclizine as needed. I did explain to the patient and the patient's that it is a little strange of putting him on medications that would increase his blood pressure, at the same time, we are treating his blood pressure; however, this cocktail has worked for the patient and he feels okay. We will continue to monitor and he will follow up with his primary care doctor as an outpatient. Job ID: [id number]
[2018-04-12] MEDS ORDERED: Lisinopril 20 MG TAB PO SCH (09:00)
== END 2018-04-11 13:39 | disposition home or self-care (01) ==
LOC: ERS 08:23 → 2SW 12:00
PROVIDERS: ADMIT Internal Medicine; ATTEND Internal Medicine
DX: R55 Syncope and collapse (principal); N17.9 Acute kidney failure, unspecified; N40.1 Benign prostatic hyperplasia with lower urinary tract symptoms; N13.8 Other obstructive and reflux uropathy; I10 Essential (primary) hypertension; E11.9 Type 2 diabetes mellitus without complications; N40.0 Benign prostatic hyperplasia without lower urinary tract symptoms; N39.0 Urinary tract infection, site not specified; Z86.73 Personal history of transient ischemic attack (TIA), and cerebral infarction without residual deficits; Z90.89 Acquired absence of other organs; Z90.79 Acquired absence of other genital organ(s); Z88.5 Allergy status to narcotic agent; Z87.891 Personal history of nicotine dependence; Z79.82 Long term (current) use of aspirin; Z79.84 Long term (current) use of oral hypoglycemic drugs; Z79.899 Other long term (current) drug therapy; Z98.890 Other specified postprocedural states
CPT/HCPCS: 64493; 64494; 70450; 71045; 78452; 80048; 80061; 82533; 82550; 82962 ×4; 84484 ×2; 85025; 87077; 87086; 93005; 93017; 93306; 93880; 94760 ×3; 96361 ×3; 96365; 96372 ×3; 96375; 96376; 97139 ×4; 99285; A9500; G0378 ×3; G8978; G8979; G8987; G8988; G8989; 36415; 36416; 80053; 81003; 81015; 84443; J0153; J0696; J1650; J2405

== ENCOUNTER 2018-08-20 13:28 | Outpatient (CLI) | payer MEDICARE ==
--- NOTE | 2018-08-20 14:17 | ULT ---
RIGHT LOWER EXTREMITY DOPPLER VENOUS ULTRASOUND: Date: 08/20/18 CPT: 28214 ICD-10-PCS: B54D INDICATION: Edema, pain. TECHNIQUE: Color flow Doppler, spectral waveform analysis of pulsed Doppler, and jalloh-scale imaging with anabel rosendo and augmentation, were used to evaluate the right common femoral, femoral, popliteal, posterior tibial, and superficial femoral, veins; and the proximal portions of the profunda femoral and greater saphenous, veins. FINDINGS: There is appropriate compressibility and flow within the imaged deep vein system of the right lower e xtremity. Soft tissue edema is present. IMPRESSION: No deep venous thrombosis of the imaged right lower extremity. POS: [facility]
== END 2018-08-20 13:29 | disposition home or self-care (01) ==
LOC: ULT 13:28
PROVIDERS: ATTEND Family Medicine
DX: M79.604 Pain in right leg (principal); M79.89 Other specified soft tissue disorders

== ENCOUNTER 2018-09-02 12:57 | Outpatient (CLI) | payer MEDICARE ==
--- NOTE | 2018-09-02 13:44 | ULT ---
EXAM: US Testicular W Doppler PROVIDED CLINICAL HISTORY: Bilateral testicular swelling COMPARISON: None FINDINGS: The testicles demonstrate a symmetric and homogeneous echotexture bilaterally without evidence of a t esticular mass. The right testicle measures 3.7 cm x 2.3 cm x 2.8 cm with the left testicle measuring 4 cm x 2.5 cm x 2.4 cm. Doppler evaluation of each testicle with spectral analysis and color flow evaluation demonstrates art erial flow in each testicle. Each epididymis demonstrates a normal sonographic appearance bilaterally. A testicular appendage is s een on the left. There is a small right and moderate left hydroceles present. IMPRESSION: 1. Bilateral hydroceles larger in size on the left. 2. Normal-appearing bilateral testicles with arterial flow documented in each testicle.
== END 2018-09-02 12:58 | disposition home or self-care (01) ==
LOC: BICULT 12:57
PROVIDERS: ATTEND Family Medicine
DX: N50.89 Other specified disorders of the male genital organs (principal); N43.3 Hydrocele, unspecified
CPT/HCPCS: 76870; 93976

== ENCOUNTER 2020-05-25 13:40 | Inpatient (IN) | payer MEDICARE ==
[2020-05-25 14:07] LABS: #Basophils 0.1 thou/uL (0.0-0.2); #Eosinphils 0.3 thou/uL (0.0-0.7); #Lymphocytes 1.9 thou/uL (1.20-3.40); #Neutrophils 6.7 thou/uL (1.40-6.50); %Basophils 0.6 % (0.0-1.0); %Eosinophils 2.6 % (0.0-10.0); %Lymphocytes 19.4 % (21.0-51.0); %Monocytes 9.6 % (0.0-10.0); %Neutrophils 67.7 % (42.0-75.0); Hemoglobin 14.3 g/dL (14.0-18.0); Mean Corpuscular HGB CONC 33.8 g/dL (32.0-36.0); Mean Corpuscular Volume 91.9 fL (78.0-98.0); Mean Platelet Volume 8.5 fL (7.4-10.4); Platelet Count 212 thou/uL (130-400); RBC Distribution Width 12.6 % (11.5-14.5); White Blood Cell (WBC) Count 9.8 thou/uL (4.8-10.8)
[2020-05-25 14:14] LABS: INR-International Normal Ratio 1.1; Prothrombin Time 14.1 sec (12.0-14.7)
[2020-05-25 14:15] LABS: PTT 33.2 sec (22.9-36.1)
[2020-05-25 14:41] LABS: ALT (SGPT) 22 U/L (8-55); AST (SGOT) 34 U/L (5-34); Albumin 4.3 g/dL (3.4-4.8); Alkaline Phosphatase 109 U/L (40-110); Anion Gap 16 mmol/L (10-20); BUN (Urea Nitrogen) 19 mg/dL (8.4-25.7); Bilirubin, Total 0.6 mg/dL (0.2-1.2); CK (CPK) 159 U/L (30-200); Calc. Creatinine Clearance 0 mL/min (70-130); Calcium 9.2 mg/dL (7.8-10.44); Carbon Dioxide 26 mmol/L (23-31); Chloride 104 mmol/L (98-107); Globulin 3.1 g/dL (2.4-3.5); Glucose 184 mg/dL (83-110); Potassium 4.8 mmol/L (3.5-5.1); Protein, Total 7.4 g/dL (5.8-8.1); Sodium 141 mmol/L (136-145)
[2020-05-25] MEDS ORDERED: Dextrose 50% Abboject 50 ML SYRINGE SLOW IVP PRN (16:43)
[2020-05-25] MEDS ORDERED: Insulin Regular 300 UNITS/3 ML VIAL SC PRN (16:43)
[2020-05-25] MEDS ORDERED: Dextrose 5% in Water 1,000 ML IV PRN (16:43)
[2020-05-25] MEDS: Lactated Ringer's 1,000 ML IV SCH (18:17)
[2020-05-25 19:21] LABS: Troponin I Less than 0.010 ng/mL (< 0.028)
[2020-05-25] MEDS ORDERED: Acetaminophen 325 MG TAB PO PRN (20:15)
[2020-05-25] MEDS ORDERED: Ondansetron PF 4 MG/2 ML Vial IVP PRN (20:15)
[2020-05-25] MEDS ORDERED: Ondansetron ODT 4 MG TAB SL PRN (20:15)
[2020-05-25] MEDS ORDERED: Ondansetron ODT 4 MG TAB PO PRN (20:32)
[2020-05-25] MEDS: Atorvastatin Calcium 10 MG TAB PO SCH (21:01)
[2020-05-25] MEDS: Acetaminophen 325 MG TAB PO PRN (21:11)
[2020-05-25 21:29] VITALS: BMI 31.2
[2020-05-25 21:29] LABS: Troponin I 0.018 ng/mL (< 0.028)
[2020-05-26 02:46] LABS: SARS-CoV-2 PCR by NAA Not Detected (NotDetected)
[2020-05-26 05:43] LABS: ALT (SGPT) 17 U/L (8-55); AST (SGOT) 24 U/L (5-34); Albumin 3.6 g/dL (3.4-4.8); Alkaline Phosphatase 92 U/L (40-110); Anion Gap 15 mmol/L (10-20); BUN (Urea Nitrogen) 18 mg/dL (8.4-25.7); Bilirubin, Total 0.7 mg/dL (0.2-1.2); Calc. Creatinine Clearance 53 mL/min (70-130); Calcium 8.4 mg/dL (7.8-10.44); Carbon Dioxide 22 mmol/L (23-31); Chloride 105 mmol/L (98-107); Glucose 124 mg/dL (83-110); Potassium 4.5 mmol/L (3.5-5.1); Protein, Total 6.6 g/dL (5.8-8.1); Sodium 137 mmol/L (136-145)
[2020-05-26] MEDS: Lactated Ringer's 1,000 ML IV SCH ×2 (06:06→20:27)
[2020-05-26 06:26] LABS: Band 2 % (5-11); Eosinophils 1 % (0-10); Lymphocytes 31 % (21-51); MDiff Complete? YES; Mean Corpuscular HGB CONC 34.4 g/dL (32.0-36.0); Mean Corpuscular Hemoglobin 31.9 pg (27.0-31.0); Mean Corpuscular Volume 92.6 fL (78.0-98.0); Monocytes 9 % (0-10); Neutrophil 56 % (42-75); Platelet Count 142 thou/uL (130-400); RBC Distribution Width 12.5 % (11.5-14.5); Reactive Lymphocytes 1 % (0-10); Red Blood Cell (RBC) Count 4.08 mill/uL (4.70-6.10); White Blood Cell (WBC) Count 6.3 thou/uL (4.8-10.8)
[2020-05-26] MEDS ORDERED: Non-Formulary Item 1 EACH (Sertraline Hcl [Sertraline Hcl] 50 MG Tablet) PO SCH (09:00)
[2020-05-26] MEDS ORDERED: Iopamidol 370 76% 100 ML VIAL ONE (10:05)
[2020-05-26] MEDS: Cholecalciferol 1,000 UNITS (25 MCG) TAB PO SCH (10:15)
[2020-05-26] MEDS: Insulin Regular 300 UNITS/3 ML VIAL SC PRN (18:34)
[2020-05-26] MEDS: Atorvastatin Calcium 10 MG TAB PO SCH (20:27)
[2020-05-27 05:24] LABS: Anion Gap 14 mmol/L (10-20); BUN (Urea Nitrogen) 11 mg/dL (8.4-25.7); Calc. Creatinine Clearance 61 mL/min (70-130); Calcium 8.8 mg/dL (7.8-10.44); Carbon Dioxide 26 mmol/L (23-31); Chloride 104 mmol/L (98-107); Glucose 116 mg/dL (83-110); Potassium 3.8 mmol/L (3.5-5.1); Sodium 140 mmol/L (136-145)
[2020-05-27] MEDS ORDERED: hydrALAZINE 25 MG TAB PO SCH (09:00)
[2020-05-27] MEDS ORDERED: Magnevist 469MG/ML 20 ML VIAL ONE (10:14)
[2020-05-27] MEDS: Amlodipine 10 MG TAB PO SCH (10:40)
[2020-05-27] MEDS: Cholecalciferol 1,000 UNITS (25 MCG) TAB PO SCH (10:41)
[2020-05-27] MEDS: Insulin Regular 300 UNITS/3 ML VIAL SC PRN (11:07)
[2020-05-27] MEDS ORDERED: levETIRAcetam 500 MG TAB PO SCH ×2 (12:15→21:00)
[2020-05-27] MEDS: Lactated Ringer's 1,000 ML IV SCH (13:54)
[2020-05-27] MEDS: Atorvastatin Calcium 10 MG TAB PO SCH ×2 (20:22→20:24)
[2020-05-28] MEDS: Lactated Ringer's 1,000 ML IV SCH ×3 (01:36→23:22)
[2020-05-28] MEDS: Acetaminophen 325 MG TAB PO PRN (04:23)
[2020-05-28 05:23] LABS: #Basophils 0.1 thou/uL (0.0-0.2); #Eosinphils 0.2 thou/uL (0.0-0.7); #Lymphocytes 1.5 thou/uL (1.20-3.40); #Monocytes 0.7 thou/uL (0.11-0.59); #Neutrophils 4.8 thou/uL (1.40-6.50); %Basophils 0.7 % (0.0-1.0); %Eosinophils 2.3 % (0.0-10.0); %Lymphocytes 21.4 % (21.0-51.0); %Neutrophils 66.6 % (42.0-75.0); Mean Corpuscular HGB CONC 33.3 g/dL (32.0-36.0); Mean Corpuscular Hemoglobin 30.3 pg (27.0-31.0); Mean Platelet Volume 8.5 fL (7.4-10.4); Platelet Count 189 thou/uL (130-400); RBC Distribution Width 12.3 % (11.5-14.5); Red Blood Cell (RBC) Count 4.31 mill/uL (4.70-6.10); White Blood Cell (WBC) Count 7.1 thou/uL (4.8-10.8)
[2020-05-28 05:48] LABS: Anion Gap 15 mmol/L (10-20); BUN (Urea Nitrogen) 9 mg/dL (8.4-25.7); Calc. Creatinine Clearance 67 mL/min (70-130); Calcium 8.9 mg/dL (7.8-10.44); Carbon Dioxide 24 mmol/L (23-31); Chloride 105 mmol/L (98-107); Glucose 120 mg/dL (83-110); Magnesium 1.6 mg/dL (1.6-2.6); Phosphorus 3.4 mg/dL (2.3-4.7); Potassium 3.7 mmol/L (3.5-5.1); Sodium 140 mmol/L (136-145)
[2020-05-28] MEDS ORDERED: Magnesium 2 GM/50 ML 2 GM in Premix Bag 1 BAG IVPB SCH (09:15)
[2020-05-28] MEDS: Amlodipine 10 MG TAB PO SCH (10:10)
[2020-05-28] MEDS: Cholecalciferol 1,000 UNITS (25 MCG) TAB PO SCH (10:10)
[2020-05-28] MEDS ORDERED: Iopamidol-370 76% 500 ML 1 ML ONE (10:33)
[2020-05-28 11:36] LABS: HIV (1/2) Antibody/Antigen Non-Reactive (NonReactive); HIV 1/2 INDEX 0.16 S/CO (<1.00)
[2020-05-28] MEDS: Atorvastatin Calcium 10 MG TAB PO SCH (20:46)
[2020-05-29 08:14] LABS: #Eosinphils 0.1 thou/uL (0.0-0.7); #Lymphocytes 1.7 thou/uL (1.20-3.40); #Monocytes 0.7 thou/uL (0.11-0.59); %Basophils 0.4 % (0.0-1.0); %Eosinophils 1.5 % (0.0-10.0); %Lymphocytes 21.9 % (21.0-51.0); %Monocytes 9.3 % (0.0-10.0); %Neutrophils 66.9 % (42.0-75.0); Hemoglobin 12.6 g/dL (14.0-18.0); Mean Corpuscular HGB CONC 34.5 g/dL (32.0-36.0); Mean Corpuscular Hemoglobin 31.8 pg (27.0-31.0); Mean Corpuscular Volume 92.4 fL (78.0-98.0); Mean Platelet Volume 8.1 fL (7.4-10.4); Platelet Count 180 thou/uL (130-400); RBC Distribution Width 12.4 % (11.5-14.5); Red Blood Cell (RBC) Count 3.94 mill/uL (4.70-6.10); White Blood Cell (WBC) Count 7.5 thou/uL (4.8-10.8)
[2020-05-29 08:26] LABS: Anion Gap 13 mmol/L (10-20); BUN (Urea Nitrogen) 11 mg/dL (8.4-25.7); Calc. Creatinine Clearance 58 mL/min (70-130); Calcium 8.4 mg/dL (7.8-10.44); Carbon Dioxide 25 mmol/L (23-31); Chloride 106 mmol/L (98-107); Glucose 117 mg/dL (83-110); Magnesium 1.9 mg/dL (1.6-2.6); Potassium 3.7 mmol/L (3.5-5.1); Sodium 140 mmol/L (136-145)
[2020-05-29] MEDS ORDERED: Magnesium 2 GM/50 ML 2 GM in Premix Bag 1 BAG IVPB SCH (10:15)
[2020-05-29] MEDS: Cholecalciferol 1,000 UNITS (25 MCG) TAB PO SCH (12:28)
[2020-05-29] MEDS: Amlodipine 10 MG TAB PO SCH (12:28)
[2020-05-29] MEDS: Lactated Ringer's 1,000 ML IV SCH (15:16)
[2020-05-29] MEDS: Atorvastatin Calcium 10 MG TAB PO SCH (21:51)
[2020-05-30] MEDS ORDERED: Magnesium 2 GM/50 ML 2 GM in Premix Bag 1 BAG IVPB SCH (01:00)
[2020-05-30 01:12] LABS: Anion Gap 14 mmol/L (10-20); BUN (Urea Nitrogen) 11 mg/dL (8.4-25.7); Calc. Creatinine Clearance 60 mL/min (70-130); Calcium 8.4 mg/dL (7.8-10.44); Carbon Dioxide 23 mmol/L (23-31); Chloride 104 mmol/L (98-107); Glucose 113 mg/dL (83-110); Potassium 3.6 mmol/L (3.5-5.1); Sodium 137 mmol/L (136-145)
[2020-05-30] MEDS: Acetaminophen 325 MG TAB PO PRN (04:27)
[2020-05-30] MEDS: Lactated Ringer's 1,000 ML IV SCH ×2 (05:43→18:34)
[2020-05-30] MEDS: Cholecalciferol 1,000 UNITS (25 MCG) TAB PO SCH (08:33)
[2020-05-30] MEDS: Amlodipine 10 MG TAB PO SCH (08:37)
[2020-05-30 14:13] LABS: #Eosinphils 0.1 thou/uL (0.0-0.7); #Lymphocytes 1.4 thou/uL (1.20-3.40); #Monocytes 0.5 thou/uL (0.11-0.59); #Neutrophils 4.3 thou/uL (1.40-6.50); %Basophils 0.4 % (0.0-1.0); %Eosinophils 1.8 % (0.0-10.0); %Lymphocytes 22.2 % (21.0-51.0); %Neutrophils 67.7 % (42.0-75.0); Hemoglobin 13.5 g/dL (14.0-18.0); Mean Corpuscular HGB CONC 33.5 g/dL (32.0-36.0); Mean Corpuscular Hemoglobin 31.5 pg (27.0-31.0); Mean Corpuscular Volume 93.9 fL (78.0-98.0); Platelet Count 124 thou/uL (130-400); RBC Distribution Width 12.4 % (11.5-14.5); Red Blood Cell (RBC) Count 4.28 mill/uL (4.70-6.10); White Blood Cell (WBC) Count 6.4 thou/uL (4.8-10.8)
[2020-05-30 15:19] LABS: Iron 70 ug/dL (65-175); Iron Binding Capacity, Total 290 mcg/dL (261-462)
[2020-05-30] MEDS: Atorvastatin Calcium 10 MG TAB PO SCH (21:01)
[2020-05-31 05:23] LABS: #Eosinphils 0.2 thou/uL (0.0-0.7); #Lymphocytes 1.8 thou/uL (1.20-3.40); #Monocytes 0.6 thou/uL (0.11-0.59); #Neutrophils 4.7 thou/uL (1.40-6.50); %Basophils 0.5 % (0.0-1.0); %Eosinophils 2.1 % (0.0-10.0); %Lymphocytes 24.1 % (21.0-51.0); %Monocytes 8.8 % (0.0-10.0); %Neutrophils 64.5 % (42.0-75.0); Hemoglobin 13.5 g/dL (14.0-18.0); Mean Corpuscular HGB CONC 35.6 g/dL (32.0-36.0); Mean Corpuscular Hemoglobin 32.8 pg (27.0-31.0); Mean Corpuscular Volume 92.2 fL (78.0-98.0); Mean Platelet Volume 8.4 fL (7.4-10.4); Platelet Count 184 thou/uL (130-400); RBC Distribution Width 12.3 % (11.5-14.5); Red Blood Cell (RBC) Count 4.12 mill/uL (4.70-6.10); White Blood Cell (WBC) Count 7.3 thou/uL (4.8-10.8)
[2020-05-31 05:32] LABS: Anion Gap 14 mmol/L (10-20); BUN (Urea Nitrogen) 11 mg/dL (8.4-25.7); Calc. Creatinine Clearance 65 mL/min (70-130); Calcium 8.5 mg/dL (7.8-10.44); Carbon Dioxide 23 mmol/L (23-31); Chloride 105 mmol/L (98-107); Glucose 101 mg/dL (83-110); Potassium 3.5 mmol/L (3.5-5.1); Sodium 138 mmol/L (136-145)
[2020-05-31 07:55] VITALS: TEMP 97.7
[2020-05-31] MEDS: Cholecalciferol 1,000 UNITS (25 MCG) TAB PO SCH (08:57)
[2020-05-31] MEDS: Amlodipine 10 MG TAB PO SCH (08:57)
[2020-05-31] MEDS: Lactated Ringer's 1,000 ML IV SCH (11:50)
[2020-05-31 12:09] VITALS: BP 157/100
[2020-05-31] MEDS ORDERED: hydrALAZINE 25 MG TAB PO SCH ×2 (21:00)
[2020-05-31] MEDS ORDERED: Gabapentin 300 MG CAP PO SCH (21:00)
[2020-06-01 22:12] LABS: QuantiFERON-TB Gold Plus Negative (Negative)
== END 2020-05-31 13:26 | disposition hospice, home (50) | DRG 82 ==
LOC: ERS 13:40 → ERHOLD 16:11 → 2SE 19:54
PROVIDERS: ADMIT Surgery; ATTEND Student in an Organized Health Care Education/Training Program
DX: S06.5X9A Traumatic subdural hemorrhage with loss of consciousness of unspecified duration, initial encounter (principal); I63.89 Other cerebral infarction; G93.6 Cerebral edema; G93.41 Metabolic encephalopathy; G81.94 Hemiplegia, unspecified affecting left nondominant side; I47.2 Ventricular tachycardia; N17.9 Acute kidney failure, unspecified; C79.31 Secondary malignant neoplasm of brain; Z66 Do not resuscitate; Z51.5 Encounter for palliative care; Z20.822 Contact with and (suspected) exposure to COVID-19; K21.9 Gastro-esophageal reflux disease without esophagitis; E78.00 Pure hypercholesterolemia, unspecified; F41.9 Anxiety disorder, unspecified; E78.5 Hyperlipidemia, unspecified; I12.9 Hypertensive chronic kidney disease with stage 1 through stage 4 chronic kidney disease, or unspecified chronic kidney disease; E11.22 Type 2 diabetes mellitus with diabetic chronic kidney disease; N18.30 Chronic kidney disease, stage 3 unspecified; G93.89 Other specified disorders of brain; W19.XXXA Unspecified fall, initial encounter; R27.8 Other lack of coordination; E83.42 Hypomagnesemia; D50.9 Iron deficiency anemia, unspecified; C80.1 Malignant (primary) neoplasm, unspecified; Z88.5 Allergy status to narcotic agent; Z79.82 Long term (current) use of aspirin; Z79.84 Long term (current) use of oral hypoglycemic drugs; Z79.899 Other long term (current) drug therapy; Z98.890 Other specified postprocedural states; Z91.81 History of falling; Z86.73 Personal history of transient ischemic attack (TIA), and cerebral infarction without residual deficits; R40.2362 Coma scale, best motor response, obeys commands, at arrival to emergency department; R40.2142 Coma scale, eyes open, spontaneous, at arrival to emergency department; R40.2242 Coma scale, best verbal response, confused conversation, at arrival to emergency department; R29.708 NIHSS score 8; F32.9 Major depressive disorder, single episode, unspecified
CPT/HCPCS: 36415; 36416; 70450; 70496; 70551; 70553; 71260; 72125; 72128; 72131; 72170; 74177; 80048; 80053; 82550; 82607; 82746; 83540; 83550; 83615; 83735; 84100; 84484; 85007; 85025; 85027; 85610; 85730; 86480; 86850; 86900; 86901; 87389; 87635; 93005; 93306; 93880; 93970; 95712; 95816; 95819; 95957; A9579; J1815; J3475; Q9967; U0003; U0005